=== PATIENT | female | born 1950 | race Caucasian/White ===

== ENCOUNTER 2022-01-09 05:33 | Outpatient (CLI) | payer MEDICARE, OTHER ==
[~2022-01-09] VITALS: Ht 165.1 cm; Wt 77.3 kg
[2022-01-13] MEDS ORDERED: CALC-654 PO (11:23)
[2022-01-13] MEDS ORDERED: VISION (11:23)
[2022-01-13] MEDS ORDERED: LEVO125C4 PO (11:23)
[2022-01-13] MEDS ORDERED: OMEP20TA56 PO (11:23)
== END 2022-01-13 11:26 | disposition home or self-care (01) ==
LOC: PREOP 05:33
PROVIDERS: ATTEND Otolaryngology Otolaryngology/Facial Plastic Surgery
DX: Z01.818 Encounter for other preprocedural examination (principal)

== ENCOUNTER 2022-01-16 06:50 | Day surgery (SDC) | payer MEDICARE, OTHER ==
[~2022-01-16] VITALS: Ht 165.1 cm; Wt 77.3 kg
[2022-01-16] VITALS (9 sets, daily range): BP systolic 111–135; BP diastolic 57–62
[~2022-01-16 06:50] MED LIST: CALC-654 PO; LEVO125C4 PO; OMEP20TA56 PO; VISION
[2022-01-16] MEDS ORDERED: LACTATED RINGERS 1,000 ML IV PRN (07:15)
[2022-01-16 07:43] LABS: BASOPHILS % (AUTO) 1 % (0-10); EOSINOPHILS # (AUTO) 0.1 10^3/uL (0.0-0.3); EOSINOPHILS % (AUTO) 1 % (0-10); HEMATOCRIT 36 % (35-52); HEMOGLOBIN 12.3 g/dL (11.5-16.0); LYMPHOCYTES # (AUTO) 0.7 10^3/uL (1.0-4.0); LYMPHOCYTES % (AUTO) 18 % (12-44); MEAN CORPUSCULAR HEMOGLOBIN 30 pg (25-34); MEAN CORPUSCULAR HGB CONC 34 g/dL (32-36); MEAN CORPUSCULAR VOLUME 88 fL (80-99); MEAN PLATELET VOLUME 9.5 fL (9.0-12.2); MONOCYTES # (AUTO) 0.4 10^3/uL (0.0-1.0); MONOCYTES % (AUTO) 11 % (0-12); NEUTROPHILS # (AUTO) 2.6 10^3/uL (1.8-7.8); NEUTROPHILS % (AUTO) 68 % (42-75); PLATELET COUNT 280 10^3/uL (130-400); WHITE BLOOD COUNT 3.9 10^3/uL (4.3-11.0)
[2022-01-16 07:58] LABS: POTASSIUM 3.8 MMOL/L (3.6-5.0)
[2022-01-16 08:03] LABS: CREATININE SERUM 0.7 MG/DL (0.60-1.30)
[2022-01-16] MEDS ORDERED: BACITRACIN OINTMENT 28 GM TUBE ONE (08:15)
[2022-01-16] MEDS ORDERED: LIDOCAINE/EPI 2% 1:200,00 (XYLOCAINE) 10 ML VIAL ONE (08:15)
[2022-01-16] MEDS ORDERED: proPOfol 200 MG/20 ML (DIPRIVAN) VIAL IV ONE (08:31)
[2022-01-16] MEDS ORDERED: LIDOCAINE PF 2% 5 ML (XYLOCAINE) VIAL ONE (08:31)
[2022-01-16] MEDS ORDERED: fentaNYL INJ 100 MCG/2 ML AMP ONE (08:31)
[2022-01-16] MEDS ORDERED: MIDAZOLAM 2 MG/2 ML (VERSED) VIAL ONE (09:16)
[2022-01-16] MEDS ORDERED: ONDANSETRON 4 MG/2 ML (SDV) Z0FRAN ONE (09:16)
--- NOTE | 2022-01-16 09:24 | Progress Note-Pre Operative ---
Pre-Operative Progress Note H&P Reviewed The H&P was reviewed, patient examined and no changes noted. Date Seen by Provider: Jan 16, 2022 Time Seen by Provider: 09:00 Date H&P Reviewed: Jan 16, 2022 Time H&P Reviewed: 09:00 Pre-Operative Diagnosis: Left Neck Mass, Metastatic Breast Cancer LINDA RUFFIN MD Jan 16, 2022 09:24
--- NOTE | 2022-01-16 09:25 | Progress Note-Post Operative ---
Post-Operative Progess Note Surgeon (s)/Assorter (s) Surgeon LINDA RUFFIN MD Assorter n/a Pre-Operative Diagnosis Left Neck Mass, Metastatic Breast Cancer Post-Operative Diagnosis same Post-Op Procedure Note Date of Procedure: Jan 16, 2022 Name of Procedure Performed: Excision of Left Neck Mass with Repair Description & Findings Description and Findings: n/a Anesthesia Type get Estimated Blood Loss minimal Packing none. Specimen(s) collected/removed left Neck mass LINDA RUFFIN MD Jan 16, 2022 09:25
[2022-01-16] MEDS ORDERED: HYDROcodone/APAP 5 MG/325 MG (LORTAB) TAB PO PRN (09:30)
[2022-01-16] MEDS ORDERED: ACETAMINOPHEN 325 MG TABLET PO PRN (09:30)
[2022-01-16] MEDS ORDERED: PHENYLEPHRINE 100 MCG/ML 10 ML (ANESTHESIA) SYR ONE (09:38)
[2022-01-16] MEDS ORDERED: GLYCOPYRROLATE 0.2 MG/ML (ROBINUL) 2 ML VIAL ONE (09:55)
[2022-01-16] MEDS ORDERED: NEOSTIGMINE 3 MG/3 ML VIAL ONE (09:55)
[2022-01-16] MEDS ORDERED: HYDROmorphone 2 MG/ML VIAL (DILAUDID) IV ONE (10:30)
[2022-01-16] MEDS ORDERED: ONDANSETRON 4 MG/2 ML (SDV) Z0FRAN IVP PRN (10:30)
[2022-01-16] MEDS ORDERED: ACHD5005 PO (11:31)
--- NOTE | 2022-01-16 14:00 | Anesthesia-General Post-Op ---
General Patient Condition Mental Status/LOC: Same as Preop Cardiovascular: Satisfactory Nausea/Vomiting: Absent Respiratory: Satisfactory Pain: Controlled Complications: Absent Post Op Complications Complications None Follow Up Care/Instructions Patient Instructions None needed. Anesthesia/Patient Condition Patient Condition Patient is doing well, no complaints, stable vital signs, no apparent adverse anesthesia problems. No complications reported per nursing. [place] [facility] [place] LAKIA GAGE CRNA Jan 16, 2022 14:00
== END 2022-01-16 11:45 ==
LOC: SDC 06:50
PROVIDERS: ATTEND Otolaryngology Otolaryngology/Facial Plastic Surgery
DX: C76.0 Malignant neoplasm of head, face and neck (principal); C79.81 Secondary malignant neoplasm of breast
CPT/HCPCS: 36415; 80048; 85025; 87081; 93005